=== PATIENT | male | born 1955 | race Asian ===

== ENCOUNTER 2017-12-26 11:11 | Emergency (ER) | END 2017-12-26 14:44 | disposition home or self-care (01) ==

== ENCOUNTER 2018-11-09 11:54 | Emergency (ER) | payer OTHER ==
[~2018-11-09] VITALS: Ht 170.2 cm; Wt 75.2 kg
[~2018-11-09 11:54] MED LIST: ACET325T33 PO; CHLO118L3 ORAL; CLIN300C10 PO
[2018-11-09] MEDS ORDERED: KETOROLAC 15 MG INJ IV STA (12:54)
[2018-11-09] MEDS ORDERED: SOD CHLORIDE 0.9% 1,000 ML IV STA (12:54)
[2018-11-09] MEDS ORDERED: ATOR10TA65 PO (13:32)
[2018-11-09] MEDS ORDERED: LOSA1TAB22 PO (13:33)
[2018-11-09] MEDS ORDERED: ATEN50TA PO (13:33)
[2018-11-09] MEDS ORDERED: GEMF600T PO (13:33)
[2018-11-09] MEDS ORDERED: METF-849 PO (13:33)
[2018-11-09] MEDS ORDERED: ASPI-903 PO (13:34)
--- NOTE | 2018-11-09 13:45 | ERD ---
ER Documentation Chief Complaint Chief Complaint MILD SOB FOR A FEW DAYS. NO COUGH. ABD PAIN N/V. NO CP OR FEVERS NOTED. HPI 63-year-old male with a history of hypertension and diabetes and recently diagnosed intraoral cancer presenting with complaints of mild shortness of breath and generalized weakness. He has felt his symptoms for the past 2 days. He denies any associated fever, chills, cough, phlegm production, chest pain. No alleviating or exacerbating factors. He has been eating and drinking normally. His care is at [facility] where he has ENT and oncology physicians. He has not started chemotherapy yet and has not had surgery for his cancer. ROS All systems reviewed and are negative except as per history of present illness. Medications Home Meds Reported Medications Aspirin* (Aspirin* Chew) 81 Mg Tab.chew, 81 MG PO DAILY, TAB.CHEW 11/09/18 Metformin* (Glucophage*) 500 Mg Tab, 500 MG PO DAILY, #90 TAB 11/09/18 Gemfibrozil* (Lopid*) 600 Mg Tablet, 600 MG PO DAILY, TAB 11/09/18 Losartan-Hydrochlorothiazide (Losartan-HCTZ) 50-12.5 Mg Tab, 1 TAB PO DAILY, TAB 11/09/18 Atenolol* (Atenolol*) 50 Mg Tablet, 50 MG PO DAILY, #30 TAB 11/09/18 Atorvastatin Calcium (Atorvastatin Calcium) 10 Mg Tablet, 10 MG PO QHS, #30 TAB 11/09/18 Discontinued Scripts Acetaminophen* (Tylenol*) 325 Mg Tablet, 2 TAB PO Q8 PRN for PAIN AND OR ELEVATED TEMP, #20 TAB Prov:MONTANA GAGE MD 12/26/17 Chlorhexidine Gluconate* (Chlorhexidine Gluconate*) 118 Ml Liquid, 15 ML ORAL BID for 7 Days, ML Prov:MONTANA GAGE MD 12/26/17 Clindamycin Hcl* (Clindamycin Hcl*) 300 Mg Capsule, 300 MG PO TID for 10 Days, CAP Prov:MONTANA GAGE MD 12/26/17 Allergies Allergies: Coded Allergies: erythromycin base (Verified Allergy, Unknown, 11/10/18) tetracycline (Unverified Allergy, Unknown, 11/10/18) PMhx/Soc History of Surgery: No Anesthesia Reaction: No Hx Neurological Disorder: No Hx Respiratory Disorders: No Hx Cardiac Disorders: Yes (Hypertension) Hx Psychiatric Problems: No Hx Miscellaneous Medical Probl: Yes (Prostate cancer, cancerous mass intraoral, DM) Hx Alcohol Use: No Hx Substance Use: No Hx Tobacco Use: No Smoking Status: Never smoker FmHx Family History: No diabetes Physical Exam Vitals Vital Signs Date Temp Pulse Resp B/P (MAP) Pulse Ox O2 O2 Flow FiO2 Time Delivery Rate 11/09/18 68 20 133/79 97 Room Air 17:23 (97) 11/09/18 64 20 111/63 94 Room Air 13:39 (79) 11/09/18 98.0 65 20 114/52 95 11:58 (72) Physical Exam Const: No acute distress Head: Atraumatic Eyes: Normal Conjunctiva, PERRLA, EOMI ENT: Left facial swelling due to intraoral of the large hypervascular mass with no active bleeding left buccal mucosa Neck: Full range of motion. No meningismus. Resp: Clear to auscultation bilaterally Cardio: Regular rate and rhythm, no murmurs Abd: Soft, non tender, non distended. Normal bowel sounds Skin: No petechiae or rashes Back: No midline or flank tenderness Ext: No cyanosis, or edema Neur: Awake and alert, cranial nerves intact, normal speech, strength and sensations intact Psych: Normal Mood and Affect Result Diagram: 11/09/18 1304 11/09/18 1304 Results 24 hrs Laboratory Tests Test 11/09/18 13:04 11/09/18 14:02 White Blood Count 9.8 10^3/ul Red Blood Count 4.68 10^6/ul Hemoglobin 14.0 g/dl Hematocrit 41.3 % Mean Corpuscular Volume 88.2 fl Mean Corpuscular Hemoglobin 29.9 pg Mean Corpuscular Hemoglobin Concent 33.9 g/dl Red Cell Distribution Width 12.4 % Platelet Count 351 10^3/UL Mean Platelet Volume 9.6 fl Immature Granulocytes % 0.500 % Neutrophils % 84.1 % Lymphocytes % 7.0 % Monocytes % 7.1 % Eosinophils % 0.9 % Basophils % 0.4 % Nucleated Red Blood Cells % 0.0 /100WBC Immature Granulocytes # 0.050 10^3/ul Neutrophils # 8.2 10^3/ul Lymphocytes # 0.7 10^3/ul Monocytes # 0.7 10^3/ul Eosinophils # 0.1 10^3/ul Basophils # 0.0 10^3/ul Nucleated Red Blood Cells # 0.0 10^3/ul Prothrombin Time 13.3 Sec Prothrombin Time Ratio 1.0 INR International Normalized Ratio 1.00 Activated Partial Thromboplast Time 34.4 Sec Sodium Level 138 mmol/L Potassium Level 4.2 mmol/L Chloride Level 99 mmol/L Carbon Dioxide Level 32 mmol/L Anion Gap 7 Blood Urea Nitrogen 29 mg/dl Creatinine 0.79 mg/dl Est Glomerular Filtrat Rate mL/min > 60 mL/min Glucose Level 161 mg/dl Calcium Level 12.2 mg/dl Total Bilirubin 0.9 mg/dl Direct Bilirubin 0.00 mg/dl Indirect Bilirubin 0.9 mg/dl Aspartate Amino Transf (AST/SGOT) 29 IU/L Alanine Aminotransferase (ALT/SGPT) 19 IU/L Alkaline Phosphatase 111 IU/L Total Protein 7.4 g/dl Albumin 4.4 g/dl Ionized Calcium (Measured) 1.5 mmol/L Current Medications Medications Dose Sig/Avinash Start Time Status Last (Trade) Ordered Route PRN Stop Time Admin Dose Reason Admin Sodium 1,000 ml @ Q1H STAT 11/09/18 DC 11/09/18 Chloride 1,000 mls/hr IV 12:54 13:04 11/09/18 13:53 Ketorolac 15 mg ONCE STAT 11/09/18 DC 11/09/18 Tromethamine IV 12:54 13:04 (Toradol) 11/09/18 12:56 Zoledronic 105 ml @ ONCE ONCE 11/09/18 DC 11/09/18 Acid 4 420 mls/hr IVPB 15:30 15:57 mg/Sodium 11/09/18 15:44 Chloride Morphine 4 mg ONCE STAT 11/09/18 DC 11/09/18 Sulfate IV 16:07 16:16 (morphine) 11/09/18 16:08 Ondansetron 4 mg ONCE STAT 11/09/18 DC 11/09/18 HCl (Zofran IV 16:07 16:17 Inj) 11/09/18 16:08 Procedures/MDM EMERGENT LABS AND DIAGNOSTIC STUDIES: Lab Results above were reviewed and interpreted by me. CBC: no anemia or evidence of infection CMP: Hypercalcemic with calcium 12.2. Mild BUN elevation, likely secondary to dehydration. No evidence of clinically significant electrolyte abnormality, acidosis, renal failure, hypoglycemia, liver disease, or biliary obstruction 12-lead EKG was interpreted by Luly Freed MD: Normal Sinus Rhythm Normal axis Normal intervals No acute ST or T wave changes suggestive of acute ischemia or STEMI. Radiology Results as interpreted by Radiology below were reviewed by Concepcion Freed MD: Chest x-ray: no acute abnormalities Initial Nursing notes reviewed. Previous Medical Records requested via the Electronic Health Record. EMERGENCY DEPARTMENT COURSE / MEDICAL DECISION MAKING: Patient presents with generalized weakness and shortness of breath, now somewhat improved. Vitals are unremarkable. Labs notable for hypercalcemia, however not severe. He was treated with IV fluids initially. I spoke with admitting physician for [facility], Dr. Campbell, who does not feel that the patient be admitted. He recommended treatment with a bisphosphonate. Zolendronate was given IV. He will arrange for the patient to be followed up by oncology and endocrinology within the next few days. Upon reevaluation, the patient states that he feels much better. I have a low suspicion for acute infection, ACS, or pulmonary embolism. Shortness of breath has resolved. Results were discussed with the patient. Plan of care was discussed. He is agreeable. Return precautions given to patient and son at bedside. He will follow-up with his oncologist in 2 days as he will need repeat blood tests Critical Care Time: 35 minutes Treatments/Evaluations: Close monitoring and treatment of unstable vital signs, cardiorespiratory, and neurologic status, while maintaining tight balance of fluid, respiratory, and cardiac interventions. This time includes discussing the case with the patient and the patients family. This time does not include all procedures stated elsewhere in this record. This time also includes reviewing old records, labs and radiological studies. This time includes examining and re- examining the patient. Additionally, this time also includes arranging care with admitting and consulting physicians. Patient's blood pressure was elevated (>120/80) but appears stable without evidence of hypertensive emergency or urgency. The patient was counseled about t he risks of hypertension and urged to pursue outpatient monitoring and therapy within a week with their primary care physician. Departure Diagnosis: Primary Impression: Hypercalcemia of malignancy Additional Impression: Generalized weakness Condition: Stable EKDOUGIE MCFARLAND MD November 09, 2018 13:45
[2018-11-09] MEDS ORDERED: ZOLEDRONIC ACID 4 MG in SOD CHLORIDE 0.9% 100 ML IVPB ONE (15:30)
[2018-11-09] MEDS ORDERED: ONDANSETRON 4 MG INJ IV STA (16:07)
[2018-11-09] MEDS ORDERED: morphine 4 MG/ML VIAL IV STA (16:07)
[2018-11-09 17:23] VITALS: BP 133/79; PULSE 68; RESP 20
== END 2018-11-09 17:24 | disposition home or self-care (01) ==
LOC: E/R 11:54
DX: R06.02 Shortness of breath (principal); R22.0 Localized swelling, mass and lump, head; I10 Essential (primary) hypertension; Z79.84 Long term (current) use of oral hypoglycemic drugs; Z85.46 Personal history of malignant neoplasm of prostate
CPT/HCPCS: 36415; 71045; 80048; 80076; 82330; 85025; 85610; 85730; 93005; 96374; 96375; 99285; J1885; J2270; J2405; J3489; J7030

== ENCOUNTER 2018-11-10 10:50 | Emergency (ER) | payer OTHER ==
[~2018-11-10] VITALS: Wt 76.2 kg
[~2018-11-10 10:50] MED LIST changes: -ACET325T33 PO; +ASPI-903 PO; +ATEN50TA PO; +ATOR10TA65 PO; -CHLO118L3 ORAL; -CLIN300C10 PO; +GEMF600T PO; +LOSA1TAB22 PO; +METF-849 PO
[2018-11-10 10:56] VITALS: Wt 76.2 kg
--- NOTE | 2018-11-10 12:19 | ERD ---
ER Documentation Chief Complaint Chief Complaint RIGHT ARM NUMBNESS WHEN LYING DOWN, SWELLING FACE, THINKS HAVING AR HPI This is a 63-year-old male with a history of left cheek and facial mass who is being followed at [facility] and is scheduled to see surgeon sometime next week who presents to the emergency room for evaluation of right arm paresthesias. The patient states that he was here yesterday and was diagnosed with high calcium. He states that he was instructed to come back to the emergency room if you were to have any weakness or numbness. The patient states that he when he woke up this morning he had a periodic numbness in the right arm which lasted approximately 2 minutes. The patient is here with his son and son states the patient does not have any facial droop, slurred speech, and they did google his symptoms and came to the ER for evaluation. The patient denies any fevers chills nausea vomiting chest pain or shortness of breath ROS All systems reviewed and are negative except as per history of present illness. Medications Home Meds Reported Medications Aspirin* (Aspirin* Chew) 81 Mg Tab.chew, 81 MG PO DAILY, TAB.CHEW 11/09/18 Metformin* (Glucophage*) 500 Mg Tab, 500 MG PO DAILY, #90 TAB 11/09/18 Gemfibrozil* (Lopid*) 600 Mg Tablet, 600 MG PO DAILY, TAB 11/09/18 Losartan-Hydrochlorothiazide (Losartan-HCTZ) 50-12.5 Mg Tab, 1 TAB PO DAILY, TAB 11/09/18 Atenolol* (Atenolol*) 50 Mg Tablet, 50 MG PO DAILY, #30 TAB 11/09/18 Atorvastatin Calcium (Atorvastatin Calcium) 10 Mg Tablet, 10 MG PO QHS, #30 TAB 11/09/18 Discontinued Scripts Acetaminophen* (Tylenol*) 325 Mg Tablet, 2 TAB PO Q8 PRN for PAIN AND OR ELEVATED TEMP, #20 TAB Prov:MONTANA GAGE MD 12/26/17 Chlorhexidine Gluconate* (Chlorhexidine Gluconate*) 118 Ml Liquid, 15 ML ORAL BID for 7 Days, ML Prov:MONTANA GAGE MD 12/26/17 Clindamycin Hcl* (Clindamycin Hcl*) 300 Mg Capsule, 300 MG PO TID for 10 Days, CAP Prov:MONTANA GAGE MD 12/26/17 Allergies Allergies: Coded Allergies: erythromycin base (Verified Allergy, Unknown, 11/10/18) tetracycline (Unverified Allergy, Unknown, 11/10/18) PMhx/Soc History of Surgery: No Anesthesia Reaction: No Hx Neurological Disorder: No Hx Respiratory Disorders: No Hx Cardiac Disorders: Yes (Hypertension) Hx Psychiatric Problems: No Hx Miscellaneous Medical Probl: Yes (Prostate cancer, mass on left cheek) Hx Alcohol Use: No Hx Substance Use: No Hx Tobacco Use: No Smoking Status: Never smoker Physical Exam Vitals Vital Signs Date Temp Pulse Resp B/P (MAP) Pulse Ox O2 O2 Flow FiO2 Time Delivery Rate 11/10/18 98.1 67 18 130/66 97 10:56 (87) Physical Exam INITIAL VITAL SIGNS: Reviewed by me GENERAL: The patient is well developed and appropriate for usual state of health in no apparent distress HEENT: Left sided facial mass localized to the left cheek, no cervical lymphadenopathy, no tracheal deviation, no oropharyngeal edema pupils equal, round, and reactive to light. EOMI. There is no scleral icterus. NECK: C-spine is soft and supple, there is no meningismus. There is no cervical lymphadenopathy. LUNGS: Clear to auscultation bilaterally. There are no rales, wheezes or rhonchi. HEART: Regular rate and rhythm, no murmurs, clicks, rubs or gallops. ABDOMEN: Soft, non-tender, non-distended. There are bowel sounds in all four quadrants. No rebound or guarding. EXTREMITIES: There is no peripheral cyanosis or edema. No focal swelling or erythema. NEUROLOGICAL: The patient moves all four extremities with 5/5 strength. Cranial nerves II - XII are intact. Normal gait. Alert and oriented SKIN: There is no apparent rash or petechiae. HEME/LYMPHATIC: There is no evidence of excessive bruising or lymphedema. PSYCHIATRIC: The patient does not appear anxious or depressed. Result Diagram: 11/10/18 1132 11/10/18 1132 Results 24 hrs Laboratory Tests Test 11/10/18 11:32 White Blood Count 9.8 10^3/ul Red Blood Count 4.64 10^6/ul Hemoglobin 13.7 g/dl Hematocrit 41.8 % Mean Corpuscular Volume 90.1 fl Mean Corpuscular Hemoglobin 29.5 pg Mean Corpuscular Hemoglobin Concent 32.8 g/dl Red Cell Distribution Width 12.2 % Platelet Count 303 10^3/UL Mean Platelet Volume 9.2 fl Immature Granulocytes % 0.600 % Neutrophils % 88.1 % Lymphocytes % 4.9 % Monocytes % 5.0 % Eosinophils % 0.9 % Basophils % 0.5 % Nucleated Red Blood Cells % 0.0 /100WBC Immature Granulocytes # 0.060 10^3/ul Neutrophils # 8.6 10^3/ul Lymphocytes # 0.5 10^3/ul Monocytes # 0.5 10^3/ul Eosinophils # 0.1 10^3/ul Basophils # 0.1 10^3/ul Nucleated Red Blood Cells # 0.0 10^3/ul Sodium Level 142 mmol/L Potassium Level 4.6 mmol/L Chloride Level 100 mmol/L Carbon Dioxide Level 31 mmol/L Anion Gap 11 Blood Urea Nitrogen 28 mg/dl Creatinine 0.74 mg/dl Est Glomerular Filtrat Rate mL/min > 60 mL/min Glucose Level 143 mg/dl Calcium Level 11.5 mg/dl Magnesium Level 2.4 mg/dl Total Bilirubin 0.9 mg/dl Direct Bilirubin 0.00 mg/dl Indirect Bilirubin 0.9 mg/dl Aspartate Amino Transf (AST/SGOT) 36 IU/L Alanine Aminotransferase (ALT/SGPT) 11 IU/L Alkaline Phosphatase 129 IU/L Total Protein 8.3 g/dl Albumin 4.4 g/dl Globulin 3.90 g/dl Albumin/Globulin Ratio 1.12 Procedures/MDM 63-year-old male presents to the emergency room for evaluation of intermittent paresthesias in the right arm. On my exam the patient has full range of motion of the right arm, is 5 out of 5 strength in upper and lower extremes bilaterally. He has no focal neurological deficits. The patient does have facial mass and is scheduled for resection of his facial mass next week at [facility]. The patient had lab work drawn today and patient's calcium level is 11.5 which is down from 12.3 yesterday. The patient is not complaining of any abdominal pain, is not complaining of any difficulty urinating and I doubt patient has any renal stones, he has no psychiatric deficiencies at this time and is alert and oriented to person place and time with no focal neurological deficits. Departure Diagnosis: Primary Impression: Paresthesias Additional Impressions: Facial mass Swelling, mass, or lump on face Condition: Stable NGOZI MONIQUE DO November 10, 2018 12:19
[2018-11-10 12:35] VITALS: BP 122/61; PULSE 76; RESP 17
== END 2018-11-10 12:37 | disposition home or self-care (01) ==
LOC: E/R 10:50
DX: R20.2 Paresthesia of skin (principal); R22.0 Localized swelling, mass and lump, head; I10 Essential (primary) hypertension; Z79.82 Long term (current) use of aspirin; Z79.84 Long term (current) use of oral hypoglycemic drugs; Z85.46 Personal history of malignant neoplasm of prostate
CPT/HCPCS: 36415; 80053; 83735; 85025; 99283

== ENCOUNTER 2018-11-12 14:07 | Observation (INO) | payer OTHER ==
[~2018-11-12] VITALS: Ht 175.3 cm; Wt 72.5 kg
--- NOTE | 2018-11-12 16:17 | ERD ---
ER Documentation Chief Complaint Chief Complaint FALL D/T WEAKNESS/DIZZINESS, RIGHT RIB/SHOULDER PAIN, NO TKO--CHEEK CANCER HPI 63-year-old male with a history of hypertension and diabetes and recently diagnosed intraoral cancer awaiting surgery at [facility] presenting after having severe dizziness and lightheadedness and falling at home. He states he did not completely lose consciousness. He did fall onto his right shoulder and right ribs, where he is having aching pain, worse with movement. Pain is a 6 out of 10. No alleviating factors. He went to see his oncologist today, who told him he needed urgent surgery given his hypercalcemia that was diagnosed a few days ago here. However patient states that there has been some insurance problems and he will be unable to get surgery soon. Today he had a near syncopal episode while walking. He continues to complain of dizziness but denies any chest pain or shortness of breath. No headache, vision disturbance, focal weakness or numbness. ROS All systems reviewed and are negative except as per history of present illness. Medications Home Meds Reported Medications Aspirin* (Aspirin* Chew) 81 Mg Tab.chew, 81 MG PO DAILY, TAB.CHEW 11/09/18 Metformin* (Glucophage*) 500 Mg Tab, 500 MG PO DAILY, #90 TAB 11/09/18 Gemfibrozil* (Lopid*) 600 Mg Tablet, 600 MG PO DAILY, TAB 11/09/18 Losartan-Hydrochlorothiazide (Losartan-HCTZ) 50-12.5 Mg Tab, 1 TAB PO DAILY, TAB 11/09/18 Atenolol* (Atenolol*) 50 Mg Tablet, 50 MG PO DAILY, #30 TAB 11/09/18 Atorvastatin Calcium (Atorvastatin Calcium) 10 Mg Tablet, 10 MG PO QHS, #30 TAB 11/09/18 Discontinued Scripts Acetaminophen* (Tylenol*) 325 Mg Tablet, 2 TAB PO Q8 PRN for PAIN AND OR ELEVATED TEMP, #20 TAB Prov:MONTANA GAGE MD 12/26/17 Chlorhexidine Gluconate* (Chlorhexidine Gluconate*) 118 Ml Liquid, 15 ML ORAL BID for 7 Days, ML Prov:MONTANA GAGE MD 12/26/17 Clindamycin Hcl* (Clindamycin Hcl*) 300 Mg Capsule, 300 MG PO TID for 10 Days, CAP Prov:MONTANA GAGE MD 12/26/17 Allergies Allergies: Coded Allergies: erythromycin base (Verified Allergy, Unknown, 11/12/18) tetracycline (Unverified Allergy, Unknown, 11/12/18) PMhx/Soc History of Surgery: No Anesthesia Reaction: No Hx Neurological Disorder: No Hx Respiratory Disorders: No Hx Cardiac Disorders: Yes (Hypertension, high cholesterol) Hx Psychiatric Problems: No Hx Miscellaneous Medical Probl: Yes (Prostate cancer, cancerous mass intraoral, DM) Hx Alcohol Use: No Hx Substance Use: No Hx Tobacco Use: No Smoking Status: Never smoker FmHx Family History: No diabetes Physical Exam Vitals Vital Signs Date Temp Pulse Resp B/P (MAP) Pulse Ox O2 O2 Flow FiO2 Time Delivery Rate 11/12/18 80 16 93/49 (64) 96 Room Air 15:57 11/12/18 85 18 99/55 (70) 99 Room Air 15:22 11/12/18 97.3 64 18 95/52 (66) 99 14:25 Physical Exam Const: No acute distress, nontoxic Head: Atraumatic Eyes: Normal Conjunctiva, PERRLA, EOMI ENT: Dry mucous membranes. Intraoral mass on left cheek. Neck: Full range of motion. No meningismus. Resp: Clear to auscultation bilaterally Cardio: Regular rate and rhythm, no murmurs Abd: Soft, non tender, non distended. Normal bowel sounds Skin: No petechiae or rashes Back: No midline or flank tenderness Ext: No cyanosis, or edema large Neur: Awake and alert, normal speech, cranial nerves intact, strength and sensations intact in all 4 extremities Psych: Normal Mood and Affect Result Diagram: 11/12/18 1509 11/12/18 1509 Results 24 hrs Laboratory Tests Test 11/12/18 15:09 White Blood Count 12.4 10^3/ul Red Blood Count 4.84 10^6/ul Hemoglobin 14.2 g/dl Hematocrit 43.2 % Mean Corpuscular Volume 89.3 fl Mean Corpuscular Hemoglobin 29.3 pg Mean Corpuscular Hemoglobin Concent 32.9 g/dl Red Cell Distribution Width 12.3 % Platelet Count 391 10^3/UL Mean Platelet Volume 9.7 fl Immature Granulocytes % 1.100 % Neutrophils % 85.2 % Lymphocytes % 4.8 % Monocytes % 8.3 % Eosinophils % 0.2 % Basophils % 0.4 % Nucleated Red Blood Cells % 0.0 /100WBC Immature Granulocytes # 0.140 10^3/ul Neutrophils # 10.5 10^3/ul Lymphocytes # 0.6 10^3/ul Monocytes # 1.0 10^3/ul Eosinophils # 0.0 10^3/ul Basophils # 0.1 10^3/ul Nucleated Red Blood Cells # 0.0 10^3/ul Sodium Level 139 mmol/L Potassium Level 5.2 mmol/L Chloride Level 99 mmol/L Carbon Dioxide Level 28 mmol/L Anion Gap 12 Blood Urea Nitrogen 38 mg/dl Creatinine 1.73 mg/dl Est Glomerular Filtrat Rate mL/min 40 mL/min Glucose Level 178 mg/dl Calcium Level 11.8 mg/dl Total Bilirubin 1.0 mg/dl Direct Bilirubin 0.00 mg/dl Indirect Bilirubin 1.0 mg/dl Aspartate Amino Transf (AST/SGOT) 52 IU/L Alanine Aminotransferase (ALT/SGPT) 25 IU/L Alkaline Phosphatase 131 IU/L Total Protein 8.2 g/dl Albumin 4.6 g/dl Globulin 3.60 g/dl Albumin/Globulin Ratio 1.27 Current Medications Medications Dose Sig/Avinash Start Time Status Last (Trade) Ordered Route PRN Stop Time Admin Dose Reason Admin Ondansetron 4 mg ER BRIDGE 11/12/18 HCl (Zofran PRN IV 16:30 Inj) NAUSEA/VOMITI 11/13/18 16:29 NG 650 mg ER BRIDGE 11/12/18 Acetaminophen PRN PO 16:30 (Tylenol .MILD PAIN 11/13/18 16:29 Tab) 1-3 OR TEMP Procedures/MDM EMERGENT LABS AND DIAGNOSTIC STUDIES: Lab Results above were reviewed and interpreted by me. CBC: Mild leukocytosis, may be secondary to stress response. Lower suspicion for infection. no anemia BMP: Borderline hyperkalemia with elevated BUN and creatinine, consistent with acute renal insufficiency. No evidence of hypoglycemia or acidosis 12-lead EKG was interpreted by Luly Freed MD: Sinus Rhythm with PACs with ventricular rate of 82 beats per minute Normal axis Normal intervals No acute ST or T wave changes suggestive of acute ischemia or STEMI. Radiology Results as interpreted by Radiology below were reviewed by Concepcion Freed MD: Chest x-ray shows no acute abnormalities X-ray right ribs shows no acute fracture Right shoulder x-ray shows no acute fracture Initial Nursing notes reviewed. Previous Medical Records requested via the Electronic Health Record. EMERGENCY DEPARTMENT COURSE / MEDICAL DECISION MAKING: Patient is presenting after near syncopal episode and fall. Here he was hypotensive and was given 1 L of IV fluids with improvement of his blood pressure. I have a low suspicion for sepsis. I do not suspect acute stroke, increased intracranial pressure, acute coronary syndrome, or arrhythmia. Labs do show evidence of acute renal failure, which is new compared to labs done a fe w days ago. At this point I will feel the patient is stable for discharge and will require admission for further work-up, monitoring, and management of his acute renal failure and dehydration. Patient is agreeable with this plan. Critical Care Time: 35 minutes Treatments/Evaluations: Close monitoring and treatment of unstable vital signs, cardiorespiratory, and neurologic status, while maintaining tight balance of fluid, respiratory, and cardiac interventions. This time includes discussing the case with the patient and the patients family. This time does not include all procedures stated elsewhere in this record. This time also includes reviewing old records, labs and radiological studies. This time includes examining and re- examining the patient. Additionally, this time also includes arranging care with admitting and consulting physicians. Accepting Care Team: Current data and ongoing care discussed. Time: Time of admission Primary Provider: Dr. Shannan Quinteros Diagnosis: Primary Impression: Acute weakness Additional Impressions: Fall from ground level Acute renal failure Acute renal failure type: unspecified Qualified Codes: N17.9 - Acute kidney failure, unspecified Near syncope Condition: DOUGIE Sifuentes MD November 12, 2018 16:17
[2018-11-12] MEDS ORDERED: ACETAMINOPHEN 325 MG TAB PO PRN (16:30)
[2018-11-12] MEDS ORDERED: ONDANSETRON 4 MG INJ IV PRN (16:30)
[2018-11-12] MEDS ORDERED: morphine 4 MG/ML VIAL IV STA (17:18)
[2018-11-12 17:56] VITALS: PULSE 57
[2018-11-12 18:00] VITALS: Ht 175.3 cm; Wt 72.5 kg
[2018-11-12 20:00] VITALS: PULSE 48; PULSE 74
[2018-11-12] MEDS ORDERED: ZOLPIDEM 5 MG TAB PO PRN (20:00)
[2018-11-12 20:37] VITALS: BP 99/53; PULSE 42; RESP 18
[2018-11-12] MEDS: SOD CHLORIDE 0.9% 1,000 ML IV SCH (20:55)
[2018-11-12] MEDS: ATORVASTATIN 10 MG TAB PO SCH (20:56)
[2018-11-12] MEDS: ACETAMINOPHEN 325 MG TAB PO PRN (20:57)
[2018-11-13] VITALS (11 sets, daily range): BP systolic 101–119; BP diastolic 50–73; PULSE 47–106; RESP 16–20
[2018-11-13] MEDS: ACETAMINOPHEN 325 MG TAB PO PRN ×2 (03:02→22:12)
[2018-11-13] MEDS: SOD CHLORIDE 0.9% 1,000 ML IV SCH ×3 (06:21→22:14)
[2018-11-13] MEDS: GEMFIBROZIL 600 MG TAB PO SCH (08:10)
[2018-11-13] MEDS: morphine 2 MG INJ IV PRN ×3 (08:21→19:45)
[2018-11-13] MEDS ORDERED: ASPIRIN (EC) 81 MG TAB PO SCH (09:00)
[2018-11-13] MEDS ORDERED: ATENOLOL 50 MG TAB PO SCH (09:00)
[2018-11-13] MEDS ORDERED: HYDROCHLOROTHIAZIDE 12.5 MG CAP PO SCH (09:00)
[2018-11-13] MEDS ORDERED: LOSARTAN 50 MG TAB PO SCH (09:00)
[2018-11-13] MEDS ORDERED: GEMFIBROZIL 600 MG TAB PO SCH (09:00)
[2018-11-13] MEDS ORDERED: TRAM50TA PO (10:31)
--- NOTE | 2018-11-13 10:31 | PDOCDIS ---
Discharge Instructions CONDITION [id number] Patient Condition: [id number] Good HOME CARE INSTRUCTIONS: [id number] Diet Instructions: [id number] Activity Restrictions: [id number] Slowly Increase Activity FOLLOW UP/APPOINTMENTS Follow-up Plan pcp 1 week [facility] MILI GARZA MD November 13, 2018 10:31
--- NOTE | 2018-11-13 11:50 | CONS ---
Assessment/Plan Assessment/Plan Hospital Course (Demo Recall) Paroxysmal atrial fibrillation/flutter Hypotension, resolved Bradycardia, improved Facial cancer awaiting surgery History of hypertension History of dyslipidemia -Patient presents with dizziness and lightheadedness with standing up. Patient hypotensive and bradycardic. On review of medications, patient was on atenolol 50 mg, hydrochlorothiazide as well as losartan. Laboratory studies with evidence of hypovolemia initially with acute kidney injury. He was given IV fluids and symptoms have improved. -I would restart atenolol at a lower dose given patient with episodes of atrial fibrillation. Given patient plan for surgery in the near future, would hold off on anticoagulation at the current time -We will DC hydrochlorothiazide given recent hypovolemia. Will check echocardiogram. Consultation Date/Type/Reason Admit Date/Time November 12, 2018 at 16:26 Type of Consult Cardiology Reason for Consultation Dizziness and arrhythmia Date/Time of Note DATE: 11/13/18 TIME: 11:43 Hx of Present Illness This is a 63-year-old male with past medical history of facial cancer, hypertension, who presents after an episode of dizziness. Yesterday, patient was tired and feeling more fatigued. He did get up from the couch to answer the doorbell and became lightheaded and dizzy and fell to the floor. There was no loss of consciousness. There was no head trauma. He tried getting up and felt very weak and was not able to. Patient denies any palpitations or chest pain. Did feel some short of breath afterwards but has since resolved. After being brought to emergency room, patient is feeling better. Denies any current chest pain, shortness of breath or palpitations. He does complain of feeling tired and some dizziness. Patient was told he was having "extra heartbeats" and was put on atenolol by his primary physician. 12 point review of systems was performed with all pertinent positives and negatives mentioned above and all else is negative Past Medical History Facial cancer Medical History: high cholesterol, hypertension Home Meds Active Scripts Tramadol Hcl* (Ultram*) 50 Mg Tablet, 50 MG PO Q6H PRN for PAIN, #30 TAB Prov:MILI DOMINGUEZ MD 11/13/18 Reported Medications Aspirin* (Aspirin* Chew) 81 Mg Tab.chew, 81 MG PO DAILY, TAB.CHEW 11/09/18 Metformin* (Glucophage*) 500 Mg Tab, 500 MG PO DAILY, #90 TAB 11/09/18 Gemfibrozil* (Lopid*) 600 Mg Tablet, 600 MG PO DAILY, TAB 11/09/18 Atorvastatin Calcium (Atorvastatin Calcium) 10 Mg Tablet, 10 MG PO QHS, #30 TAB 11/09/18 Discontinued Reported Medications Losartan-Hydrochlorothiazide (Losartan-HCTZ) 50-12.5 Mg Tab, 1 TAB PO DAILY, TAB 11/09/18 Atenolol* (Atenolol*) 50 Mg Tablet, 50 MG PO DAILY, #30 TAB 11/09/18 Discontinued Scripts Acetaminophen* (Tylenol*) 325 Mg Tablet, 2 TAB PO Q8 PRN for PAIN AND OR ELEVATED TEMP, #20 TAB Prov:MONTANA GAGE MD 12/26/17 Chlorhexidine Gluconate* (Chlorhexidine Gluconate*) 118 Ml Liquid, 15 ML ORAL BID for 7 Days, ML Prov:MONTANA GAGE MD 12/26/17 Clindamycin Hcl* (Clindamycin Hcl*) 300 Mg Capsule, 300 MG PO TID for 10 Days, CAP Prov:MONTANA GAGE MD 12/26/17 Medications Current Medications Zolpidem Tartrate (Ambien) 5 mg HS PRN PO INSOMNIA; Start 11/12/18 at 20:00 Acetaminophen (Tylenol Tab) 650 mg Q4H PRN PO MILD PAIN(1-3)OR ELEVATED TEMP Last administered on 11/13/18at 03:02; Admin Dose 650 MG; Start 11/12/18 at 20:00 Morphine Sulfate (morphine) 2 mg Q3 PRN IV SEVERE PAIN LEVEL 7-10 Last administered on 11/13/18at 08:21; Admin Dose 2 MG; Start 11/12/18 at 20:00 Sodium Chloride 1,000 ml @ 100 mls/hr Q10H IV Last administered on 11/13/18at 06:21; Admin Dose 100 MLS/HR; Start 11/12/18 at 20:00 Atorvastatin Calcium (Lipitor) 10 mg HS PO Last administered on 11/12/18at 20:56; Admin Dose 10 MG; Start 11/12/18 at 21:00 Gemfibrozil (Lopid) 600 mg DAILY PO Last administered on 11/13/18at 08:10; Admin Dose 600 MG; Start 11/13/18 at 09:00 Losartan Potassium (Cozaar) 50 mg DAILY PO Last administered on 11/13/18at 08:10; Admin Dose 50 MG; Start 11/13/18 at 09:00 Hydrochlorothiazide (Hydrochlorothiazide) 12.5 mg DAILY PO Last administered on 11/13/18at 08:10; Admin Dose 12.5 MG; Start 11/13/18 at 09:00 Aspirin (Aspirin) 81 mg DAILY PO ; Start 11/14/18 at 09:00 Metformin HCl (Glucophage) 500 mg WITH DINNER PO ; Start 11/13/18 at 17:55 Allergies: Coded Allergies: erythromycin base (Verified Allergy, Unknown, 11/12/18) tetracycline (Unverified Allergy, Unknown, 11/12/18) Social History Alcohol Use: none Smoking Status: Former smoker Drug Use: none Exam/Review of Systems Vital Signs Vitals Vital Signs Date Temp Pulse Resp B/P (MAP) Pulse Ox O2 O2 Flow FiO2 Time Delivery Rate 11/13/18 98.3 84 18 113/61 97 Room Air 11:04 (78) 114/59 (77) 119/55 (76) Intake and Output 11/12/18 11/12/18 11/13/18 1515:00 23:00 07:00 IntakeIntake Total 1050 ml BalanceBalance 1050 ml Exam Constitutional: alert, oriented (No apparent distress) Head: other (Protrusion left side of face) Respiratory: clear to auscultation, normal air movement Cardiovascular: regular rate and rhythm (S1-S2 heard) Gastrointestinal: soft, non-tender, bowel sounds Extremities: other (No significant edema) Labs Result Diagram: 11/13/1862511/13/18625 Results 24hrs Laboratory Tests Test 11/12/18 15:09 11/13/18 06:26 White Blood Count 12.4 #H 7.1 # Red Blood Count 4.84 3.94 L Hemoglobin 14.2 11.9 L Hematocrit 43.2 35.4 L Mean Corpuscular Volume 89.3 89.8 Mean Corpuscular Hemoglobin 29.3 30.2 Mean Corpuscular Hemoglobin Concent 32.9 33.6 Red Cell Distribution Width 12.3 12.5 Platelet Count 391 # 223 # Mean Platelet Volume 9.7 9.4 Immature Granulocytes % 1.100 H 1.000 H Neutrophils % 85.2 H 74.8 Lymphocytes % 4.8 L 10.8 L Monocytes % 8.3 11.6 H Eosinophils % 0.2 1.4 Basophils % 0.4 0.4 Nucleated Red Blood Cells % 0.0 0.0 Immature Granulocytes # 0.140 H 0.070 H Neutrophils # 10.5 H 5.3 Lymphocytes # 0.6 L 0.8 Monocytes # 1.0 H 0.8 Eosinophils # 0.0 0.1 Basophils # 0.1 0.0 Nucleated Red Blood Cells # 0.0 0.0 Sodium Level 139 142 Potassium Level 5.2 H 4.1 Chloride Level 99 107 Carbon Dioxide Level 28 27 Anion Gap 12 8 Blood Urea Nitrogen 38 H 28 H Creatinine 1.73 H 0.88 Est Glomerular Filtrat Rate mL/min 40 L > 60 Glucose Level 178 112 # Calcium Level 11.8 H 9.4 Total Bilirubin 1.0 Direct Bilirubin 0.00 Indirect Bilirubin 1.0 Aspartate Amino Transf (AST/SGOT) 52 H Alanine Aminotransferase (ALT/SGPT) 25 Alkaline Phosphatase 131 H Total Protein 8.2 H Albumin 4.6 Globulin 3.60 H Albumin/Globulin Ratio 1.27 Imaging Imaging ECG performed yesterday at 2202 with sinus bradycardia at 48 bpm, inferior Q waves, nonspecific ST abnormalities Telemetry reviewed with sinus rhythm, frequent episodes of atrial flutter and atrial fibrillation but lasting a few seconds Medications Medications Current Medications Zolpidem Tartrate (Ambien) 5 mg HS PRN PO INSOMNIA; Start 11/12/18 at 20:00 Acetaminophen (Tylenol Tab) 650 mg Q4H PRN PO MILD PAIN(1-3)OR ELEVATED TEMP Last administered on 11/13/18at 03:02; Admin Dose 650 MG; Start 11/12/18 at 20:00 Morphine Sulfate (morphine) 2 mg Q3 PRN IV SEVERE PAIN LEVEL 7-10 Last administered on 11/13/18at 08:21; Admin Dose 2 MG; Start 11/12/18 at 20:00 Sodium Chloride 1,000 ml @ 100 mls/hr Q10H IV Last administered on 11/13/18at 06:21; Admin Dose 100 MLS/HR; Start 11/12/18 at 20:00 Atorvastatin Calcium (Lipitor) 10 mg HS PO Last administered on 11/12/18at 20:56; Admin Dose 10 MG; Start 11/12/18 at 21:00 Gemfibrozil (Lopid) 600 mg DAILY PO Last administered on 11/13/18at 08:10; Admin Dose 600 MG; Start 11/13/18 at 09:00 Losartan Potassium (Cozaar) 50 mg DAILY PO Last administered on 11/13/18at 08:10; Admin Dose 50 MG; Start 11/13/18 at 09:00 Hydrochlorothiazide (Hydrochlorothiazide) 12.5 mg DAILY PO Last administered on 11/13/18at 08:10; Admin Dose 12.5 MG; Start 11/13/18 at 09:00 Aspirin (Aspirin) 81 mg DAILY PO ; Start 11/14/18 at 09:00 Metformin HCl (Glucophage) 500 mg WITH DINNER PO ; Start 11/13/18 at 17:55 Jann Galindo DO November 13, 2018 11:50
[2018-11-13] MEDS ORDERED: MAGNESIUM SULFATE 1 GM/D5W 100 ML IVPB ONE (12:00)
[2018-11-13] MEDS: ATENOLOL 25 MG TAB PO SCH (12:50)
[2018-11-13] MEDS ORDERED: MECLIZINE 12.5 MG TAB PO PRN (13:00)
--- NOTE | 2018-11-13 14:40 | HP ---
DATE OF ADMISSION: 11/12/2018 CHIEF COMPLAINT: Dizziness and fall. HISTORY OF PRESENT ILLNESS: A 63-year-old male with recently diagnosed with oral cancer, hypertensio n and type 2 diabetes mellitus, presented to emergency room with complaint of dizziness and ground le cruz fall at home. There was no head trauma. There was no loss of consciousness. The patient fell o nto his right shoulder. Initial evaluation did not reveal any evidence of fracture. The patient was seen by oncology on the day of admission. He was told that he needs surgical intervention for the o ral cancer. The heart rate was as low as 42 and blood pressure was marginal low on admission. Serum calcium was elevated at 11.8. However with hydration, repeat serum calcium was 9.4. PAST MEDICAL HISTORY: 1. Recently diagnosed with oral cancer. 2. Hypertension. 3. Hyperlipidemia. 4. Type 2 diabetes mellitus. MEDICATIONS PRIOR TO ADMISSION: 1. Atenolol. 2. Losartan and hydrochlorothiazide. 3. Atorvastatin. 4. . 5. Aspirin 6. Metformin. SOCIAL HISTORY: The patient lives at home. He denies tobacco or alcohol use. PHYSICAL EXAMINATION: GENERAL: Well-developed, well-nourished male who is in no apparent distress. VITAL SIGNS: Blood pressure 101/59, pulse 69, temperature 97.5, room air saturation 96%. HEENT: Left side with lesion causing significant edema about the left cheek. NECK: Supple. LUNGS: Clear to auscultation bilaterally. CARDIAC: Regular rate and rhythm. No murmurs, rubs or gallops. ABDOMEN: Soft, nontender, nondistended, normoactive bowel sounds. EXTREMITIES: No clubbing, cyanosis, or edema. NEUROLOGICAL: Grossly nonfocal. LABORATORY DATA: Hemoglobin is 11.9, white blood cell count is 7.1, platelet count 223,000. Sodium 142, potassium 4.1, chloride 107, bicarbonate 27. BUN and creatinine at the time of admission were 3 8 and 1.73. Repeat BUN and creatinine were 28 and 0.88. Repeat potassium was normal at 9.4. ASSESSMENT: 1. A 63-year-old male with dizziness and ground level fall. This was most likely due to hypotension and bradycardia. Atenolol and losartan were held. 2. Dehydration, resolved. 3. Acute kidney injury, resolved. 4. Oval cancer, awaiting surgical intervention. 5. Type 2 diabetes mellitus. 6. Hyperlipidemia. 7. Hypercalcemia, resolved. PLAN: 1. Place in tele observation. 2. Hold atenolol and losartan. 3. Physical therapy and evaluation. 4. Discharge planning to home with home health. 5. Referral to [facility] for surgical management of oral cancer. Dictated By: MILI MONTEZ/MAHENDRA Conf#: [id number] DID#: [id number]
--- NOTE | 2018-11-13 16:18 | RADRPT ---
Vent Rate: 82 bpm RR Interval: 0 msec SD Interval: 144 msec QRS Duration: 84 msec QT Interval: 382 msec QTC Interval: 446 msec P-R-T Buckley: 59 - 39 - 31 degrees Sinus rhythm with Possible premature atrial complexes with aberrant conduction Otherwise normal ECG Electronically Signed By: Tre Matute
[2018-11-13] MEDS ORDERED: metFORMIN 500 MG TAB PO SCH (17:55)
[2018-11-13] MEDS: ATORVASTATIN 10 MG TAB PO SCH (20:38)
[2018-11-13] MEDS ORDERED: ATORVASTATIN 10 MG TAB PO SCH (21:00)
[2018-11-14] VITALS (8 sets, daily range): BP systolic 105–121; BP diastolic 57–79; PULSE 59–80; RESP 18–19
[2018-11-14] MEDS: morphine 2 MG INJ IV PRN ×2 (03:41→08:33)
[2018-11-14] MEDS: GEMFIBROZIL 600 MG TAB PO SCH (08:20)
[2018-11-14] MEDS: ATENOLOL 25 MG TAB PO SCH (08:24)
[2018-11-14] MEDS: SOD CHLORIDE 0.9% 1,000 ML IV SCH ×2 (08:24→12:00)
[2018-11-14] MEDS ORDERED: ASPIRIN 81 MG TAB PO SCH (09:00)
[2018-11-14] MEDS ORDERED: LOSARTAN 25 MG TAB PO SCH (09:00)
[2018-11-14] MEDS ORDERED: LOSA25TA2 PO (10:13)
[2018-11-14] MEDS ORDERED: ATEN-138 PO (10:13)
--- NOTE | 2018-11-14 10:14 | PDOCDIS ---
Discharge Instructions CONDITION [id number] Patient Condition: [id number] Good HOME CARE INSTRUCTIONS: [id number] Diet Instructions: [id number] Activity Restrictions: [id number] Slowly Increase Activity FOLLOW UP/APPOINTMENTS Follow-up Plan pcp 1 week [facility] AMANDA Galindo 1 week MILI DOMINGUEZ MD November 14, 2018 10:14
[2018-11-14] MEDS ORDERED: AMIODARONE 200 MG TAB PO SCH (12:30)
--- NOTE | 2018-11-14 13:35 | DS ---
DATE OF ADMISSION: 11/12/2018 DATE OF DISCHARGE: 11/14/2018 DISCHARGE DIAGNOSES: 1. A 63-year-old male status post ground level fall. 2. Dizziness. 3. Hypotension, resolved with IV fluid hydration. 4. Paroxysmal atrial fibrillation, rate controlled. 5. Dehydration. 6. Acute kidney injury, resolved. 7. Oral cancer, awaiting surgical resection. 8. History of hypertension. 9. History of hyperlipidemia. 10. Type 2 diabetes mellitus. HOSPITAL COURSE: A 63-year-old male with recently diagnosed oral cancer involving left side of the m outh, presented to Emergency Room following a ground level fall. There was no evidence of fracture o r head trauma. The patient complained of dizziness during the hospitalization. He was hypotensive a nd dehydrated. His symptoms resolved with IV fluid hydration. The patient also had hypercalcemia wh ich resolved with hydration. The patient was found to have rapid atrial fibrillation. Cardiology consultation was requested. The patient was started back on atenolol and low dose losartan. CONDITION ON DISCHARGE: Stable for discharge. The authorization has been generated for followup at [facility]. MEDICATIONS ON DISCHARGE: 1. Atenolol 25 mg daily. 2. Losartan 25 mg daily. 3. Lipitor 10 mg at bedtime. 4. Lopid 600 mg daily. 5. Aspirin 81 mg daily. 6. Metformin 500 mg daily. 7. Tramadol 50 mg q. 6 hours as needed. PLAN: 1. Follow up with PCP in 1 week. 2. Follow up with Dr. Galindo in 1 week. 3. Follow up at [facility] as soon as possible. Dictated By: MILI MONTEZ/MAHENDRA Conf#: [id number] DID#: [id number] CC: SANDOR GALINDO DO;*EndCC*
--- NOTE | 2018-11-14 15:14 | RADRPT ---
Echocardiogram Report Patient Name: KEVEN SANTOSPatient ID: [id number] : 1955 (63y 5m)Study Date: 11/13/2018 1:34:47 PM Gender: MAccession #: [id number] Tech: PatriciaLakhwinder Olivas [facility] Location: [facility] ([place]) Ref.Physician: JANN BACON Height(Cm): BSA: Weight(Kg): Quality: AdequateOrder Physician: JANN BACON Account #: Procedures: Echocardiographic Report: Transthoracic echocardiogram with complete 2D, M-Mode, and doppler examination. Indications: Atrial Fibrillation, and Dizziness. Measurements: 2D/M Mode Doppler Measurement Value Normal Range Measurement Value Normal Range LVIDd 2D 4.4 [ 4.2 - 5.8 ] cm AV Peak Miquel 1.5 [ 100.0 - 170.0 ] cm/sec LVIDs 2D 2.3 [ 2.5 - 4.0 ] cm AV Peak PG 9.0 [ 2.0 - 9.0 ] mmHg LVPWd 2D 1.0 [ 0.6 - 1.0 ] cm LVOT Peak Miquel 1.2 [ 70.0 - 110.0 ] cm/sec IVSd 2D 1.1 [ 0.6 - 1.0 ] cm LVOT Peak PG 6.0 [ 2.0 - 6.0 ] mmHg IVS/LVPW 2D 1.1 ratio TR Peak Miquel 2.8 [ 100.0 - 280.0 ] cm/sec AoR Diam 2D 3.5 [ 2.6 - 3.4 ] cm TR Peak PG 32.0 mmHg LA/Ao 2D 1 ratio RVSP 35.0 [ 10.0 - 36.0 ] mmHg LA Dimen 2D 3.0 [ 3.0 - 4.0 ] cm RA Pressure 3.0 mmHg Findings: Left Ventricle: Normal left ventricular systolic function. Normal left ventricular cavity size. Mild concentric left ventricular hypertrophy. Ejection fraction is visually estimated at 60 %. Tissue Doppler/Mitral Doppler indices are consistent with impaired relaxation (Stage I diastolic dysfunction). Right Ventricle: Normal right ventricular size. Normal right ventricular systolic function. Left Atrium: The left atrium is normal in size. Right Atrium: The right atrium is normal in size. Mitral Valve: Normal appearance and function of the mitral valve with trace physiologic regurgitation. Aortic Valve: No significant aortic stenosis or insufficiency. Aortic cusps appear mildly calcified. Tricuspid Valve: Normal appearance of the tricuspid valve. Estimated peak PA systolic pressure 35 mmHg. There is trace tricuspid regurgitation. Pulmonic Valve: Normal pulmonic valve appearance. Pericardium: Normal pericardium with no significant pericardial effusion. Aorta: Normal aortic root. IVC: Normal size and normal respiratory collapse consistent with normal right atrial pressure. Conclusions: Normal left ventricular systolic function. Normal left ventricular cavity size. Mild concentric left ventricular hypertrophy. Ejection fraction is visually estimated at 60 %. Tissue Doppler/Mitral Doppler indices are consistent with impaired relaxation (Stage I diastolic dysfunction). Normal right ventricular size. Normal right ventricular systolic function. The left atrium is normal in size. The right atrium is normal in size. No significant valvular stenosis or regurgitation seen. Normal pericardium with no significant pericardial effusion. Electronically Signed By: Jann Bacon 2018-11-14 15:12:53 PDT
== END 2018-11-14 13:30 | disposition home health service (06) ==
LOC: E/R 14:07 → TEL 16:26
PROVIDERS: ADMIT Internal Medicine; ATTEND Internal Medicine
DX: R42 Dizziness and giddiness (principal); I95.9 Hypotension, unspecified; I48.0 Paroxysmal atrial fibrillation; E86.0 Dehydration; I10 Essential (primary) hypertension; E78.00 Pure hypercholesterolemia, unspecified; E11.9 Type 2 diabetes mellitus without complications; C06.9 Malignant neoplasm of mouth, unspecified; I48.92 Unspecified atrial flutter; E78.5 Hyperlipidemia, unspecified; N17.9 Acute kidney failure, unspecified; Z85.46 Personal history of malignant neoplasm of prostate; Z79.84 Long term (current) use of oral hypoglycemic drugs; Z79.82 Long term (current) use of aspirin
CPT/HCPCS: 36415; 71045; 71100; 73030; 80048; 80053; 82962; 83735; 85025; 93005; 93306; 97161; 99285; G0378; J2270; J2405; J3475; J7030

== ENCOUNTER 2018-11-18 07:44 | Emergency (ER) | payer OTHER ==
[~2018-11-18] VITALS: Ht 167.6 cm; Wt 74.0 kg
[~2018-11-18 07:44] MED LIST changes: +ATEN-138 PO; -ATEN50TA PO; -LOSA1TAB22 PO; +LOSA25TA2 PO; +TRAM50TA PO
[2018-11-18 07:49] VITALS: Ht 167.6 cm; Wt 74.0 kg
[2018-11-18] MEDS ORDERED: IPRATROPIUM (NEB) 0.5 MG/2.5 ML AMP NEB STA (09:29)
[2018-11-18] MEDS ORDERED: HYDROmorphONE 1 MG/ML SYG IV STA ×2 (09:29→12:37)
[2018-11-18] MEDS ORDERED: ALBUTEROL 0.083% (NEB) 2.5 MG/3 ML AMP NEB STA (09:29)
[2018-11-18] MEDS ORDERED: ONDANSETRON 4 MG INJ IV STA ×2 (09:29→12:37)
[2018-11-18] MEDS ORDERED: SOD CHLORIDE 0.9% 1,000 ML IV STA ×2 (09:29→09:51)
--- NOTE | 2018-11-18 09:47 | ERD ---
ER Documentation Chief Complaint Chief Complaint sob since am, dizziness & headache,bruised rib fr fall wk ago HPI This is a 63-year-old male with a past medical history of intraoral carcinoma currently waiting surgical intervention which will take place at [facility] on November 29. The patient indicates that he presents to the emergency department today as he is experiencing difficulty in breathing. The patient indicates he has had diffi culty in breathing in the past that presented with a similar presentation as it hard for him to take in a deep breath with the intraoral mass. He denies any fever shaking or chills. He still complains of right rib pain which he states is worse when he takes a deep breath secondary to mechanical fall 1 week ago that was evaluated with radiographic imaging and no evidence of fracture or pneumothorax. The patient indicated on his previous admission he was diagnosed with atrial fibrillation and had been seen by the anesthesia technician Dr. Partha Martinez. However the patient was not placed on anticoagulation given that he is awaiting surgical intervention for the intraoral carcinoma. On his previous admission he did state that his calcium was low. ROS All systems reviewed and are negative except as per history of present illness. Medications Home Meds Active Scripts Losartan Potassium* (Cozaar*) 25 Mg Tablet, 25 MG PO DAILY for 30 Days, TAB Prov:MILI CAMPBELL MD 11/14/18 Atenolol (Tenormin) 25 Mg Tab, 25 MG PO DAILY for 30 Days, TAB Prov:MILI CAMPBELL MD 11/14/18 Tramadol Hcl* (Ultram*) 50 Mg Tablet, 50 MG PO Q6H PRN for PAIN, #30 TAB Prov:MILI CAMPBELL MD 11/13/18 Reported Medications Aspirin* (Aspirin* Chew) 81 Mg Tab.chew, 81 MG PO DAILY, TAB.CHEW 11/09/18 Metformin* (Glucophage*) 500 Mg Tab, 500 MG PO DAILY, #90 TAB 11/09/18 Gemfibrozil* (Lopid*) 600 Mg Tablet, 600 MG PO DAILY, TAB 11/09/18 Atorvastatin Calcium (Atorvastatin Calcium) 10 Mg Tablet, 10 MG PO QHS, #30 TAB 11/09/18 Discontinued Reported Medications Losartan-Hydrochlorothiazide (Losartan-HCTZ) 50-12.5 Mg Tab, 1 TAB PO DAILY, TAB 11/09/18 Atenolol* (Atenolol*) 50 Mg Tablet, 50 MG PO DAILY, #30 TAB 11/09/18 Allergies Allergies: Coded Allergies: acetaminophen (Verified Allergy, Unknown, 11/18/18) erythromycin base (Verified Allergy, Unknown, 11/12/18) hydrocodone (Verified Allergy, Unknown, 11/18/18) tetracycline (Unverified Allergy, Unknown, 11/12/18) PMhx/Soc History of Surgery: Yes (cholecystectomy) Anesthesia Reaction: No Hx Neurological Disorder: No Hx Respiratory Disorders: No Hx Cardiac Disorders: Yes (htn) Hx Psychiatric Problems: No Hx Miscellaneous Medical Probl: Yes (FACE TUMOR) Hx Alcohol Use: No Hx Substance Use: No Hx Tobacco Use: No Smoking Status: Never smoker Physical Exam Vitals Vital Signs Date Temp Pulse Resp B/P (MAP) Pulse Ox O2 O2 Flow FiO2 Time Delivery Rate 11/18/18 Nasal 09:56 Cannula 11/18/18 96.8 73 18 128/63 98 07:49 (84) Physical Exam Constitutional:Well-developed. Well-nourished. HEENT:Normocephalic. Atraumatic.Pupils were equal round reactive to light. Moist mucous membranes.No tonsillar exudates. Halitosis. Large intraoral mass present on the left upper palate with edema and swelling of the left cheek. Neck: No nuchal rigidity. No lymphadenopathy. No posterior cervical spine tenderness or step-offs. Respiratory: Not using accessory muscles of respiration.Lungs were clear to auscultation bilaterally. No rhonchi. No rales. No wheezing. Reproducible lateral right rib tenderness with no crepitus no ecchymosis no flail chest. Cardiovascular: Regular rate regular rhythm.No murmurs. No rubs were appreciated.S1, S2 normal. Distal pulses are palpable 2+ bilaterally. GI: Abdomen was soft. Nontender. Non Distended. No pulsatile abdominal masses or bruits. No rebound. No guarding. Bowel sounds were present and normal. Muscle skeletal: Full range of motion of both the upper and lower extremities bilaterally.Normal muscle tone.No assymetrical calf tenderness or swelling. Skin: No petechia, no purpura. No lesions on the palms or the soles of the feet. No maculopapular rash. NEURO: Patient was alert, awake, orientated x3.No facial droop. Gait observed and normal with no ataxia.Speech had regular rate and rhythm. No focal neurological deficits. Result Diagram: 11/18/18 1006 11/18/18 0943 Results 24 hrs Laboratory Tests Test 11/18/18 09:43 11/18/18 10:06 Sodium Level 139 mmol/L Potassium Level 4.8 mmol/L Chloride Level 103 mmol/L Carbon Dioxide Level 29 mmol/L Anion Gap 7 Blood Urea Nitrogen 20 mg/dl Creatinine 0.62 mg/dl Est Glomerular Filtrat Rate mL/min > 60 mL/min Glucose Level 136 mg/dl Calcium Level 10.1 mg/dl Total Bilirubin 0.8 mg/dl Direct Bilirubin 0.00 mg/dl Indirect Bilirubin 0.8 mg/dl Aspartate Amino Transf (AST/SGOT) 33 IU/L Alanine Aminotransferase (ALT/SGPT) 22 IU/L Alkaline Phosphatase 128 IU/L Troponin I < 0.012 ng/ml Total Protein 7.7 g/dl Albumin 4.1 g/dl Globulin 3.60 g/dl Albumin/Globulin Ratio 1.13 Amylase Level 61 U/L Lipase 57 U/L White Blood Count 8.5 10^3/ul Red Blood Count 4.15 10^6/ul Hemoglobin 12.3 g/dl Hematocrit 36.7 % Mean Corpuscular Volume 88.4 fl Mean Corpuscular Hemoglobin 29.6 pg Mean Corpuscular Hemoglobin Concent 33.5 g/dl Red Cell Distribution Width 12.4 % Platelet Count 286 10^3/UL Mean Platelet Volume 9.1 fl Immature Granulocytes % 0.700 % Neutrophils % 86.2 % Lymphocytes % 5.1 % Monocytes % 6.8 % Eosinophils % 0.7 % Basophils % 0.5 % Nucleated Red Blood Cells % 0.0 /100WBC Immature Granulocytes # 0.060 10^3/ul Neutrophils # 7.3 10^3/ul Lymphocytes # 0.4 10^3/ul Monocytes # 0.6 10^3/ul Eosinophils # 0.1 10^3/ul Basophils # 0.0 10^3/ul Nucleated Red Blood Cells # 0.0 10^3/ul Prothrombin Time 13.8 Sec Prothrombin Time Ratio 1.1 INR International Normalized Ratio 1.05 Activated Partial Thromboplast Time 34.2 Sec Current Medications Medications Dose Sig/Avinash Start Time Status Last (Trade) Ordered Route PRN Stop Time Admin Dose Reason Admin Sodium 1,000 ml @ Q1H STAT 11/18/18 DC 11/18/18 Chloride 1,000 mls/hr IV 09:29 09:45 11/18/18 10:28 1 mg ONCE STAT 11/18/18 DC 11/18/18 Hydromorphone IV 09:29 09:49 HCl 11/18/18 09:33 (Dilaudid) Ondansetron 4 mg ONCE STAT 11/18/18 DC 11/18/18 HCl (Zofran IV 09:29 09:49 Inj) 11/18/18 09:33 Albuterol 5 mg ONCE STAT 11/18/18 DC 11/18/18 (Proventil NEB 09:29 09:56 0.083% (Neb)) 11/18/18 09:33 Ipratropium 0.5 mg ONCE STAT 11/18/18 DC 11/18/18 [place] NEB 09:29 09:56 (Atrovent 11/18/18 09:33 0.02% (Neb)) Sodium 1,000 ml @ Q1H STAT 11/18/18 DC 11/18/18 Chloride 1,000 mls/hr IV 09:51 10:36 11/18/18 10:50 Procedures/MDM The patient presented to the emergency department with dyspnea. My differential diagnosis included but was not limited to upper airway obstruction, CHF, pulmonary embolism, cardiac ischemia, pneumonia, pneumothorax, anemia, drug overdose, pulmonary edema, COPD or asthma. The patient had no severe left leg abnormalities. Patient's calcium was within normal limits today. I obtained a 1 view chest radiograph reviewed by the radiologist myself and indicate the followin. Probable right eighth rib fracture. 2. Otherwise unremarkable chest radiograph. 12 Lead EKG tracing ordered and reviewed by myself showed: Normal sinus rhythm of 64 bpm and no arrhythmia. WA interval normal. QRS duration normal. No ST segment elevation No ST segment depression. No changes consistent with acute ischemia. The patient received IV fluids and analgesic medication. Dr. Campbell had kindly came to the bedside and evaluated the patient. We did not feel the patient required to be admitted to the hospital. His pain had improved. He does have good outpatient follow-up. The patient was discharged home in fair condition. They were instructed to return to the emergency department at any time if there was any worsening of their condition. The patient stated they would follow up with their PCP in the next 24-48 hours to initiate a suitable medication regimen under the care of their PCP as well as to allow their PCP to monitor any drug reactions. The patient was discharged home with prescriptions after they gave informed consent to the new medication. They were also fully informed by myself on the adverse effects and adverse drug interactions in order to provide adequate safeguards to prevent possible adverse reactions to medications. Departure Diagnosis: Primary Impression: Dehydration Additional Impression: Mass of intraoral region Condition: SEGUN Palmer MD November 18, 2018 09:47
[2018-11-18 14:52] VITALS: BP 136/78; PULSE 78; RESP 18
== END 2018-11-18 14:52 | disposition home or self-care (01) ==
LOC: E/R 07:44
DX: E86.0 Dehydration (principal); R40.2250 Coma scale, best verbal response, oriented, unspecified time; R40.2360 Coma scale, best motor response, obeys commands, unspecified time; R40.2140 Coma scale, eyes open, spontaneous, unspecified time; K13.70 Unspecified lesions of oral mucosa; I10 Essential (primary) hypertension; Z79.82 Long term (current) use of aspirin; Z85.828 Personal history of other malignant neoplasm of skin; Z79.84 Long term (current) use of oral hypoglycemic drugs
CPT/HCPCS: 36415; 71045; 80053; 82150; 83690; 84484; 85025; 85610; 85730; 93005; 94664; 96374; 96375; 96376; 99285; J1170; J2405; J7030